=== PATIENT | male | born 1980 | race Caucasian/White ===

== ENCOUNTER 2016-04-20 22:58 | Emergency (ER) | payer SELFPAY ==
[~2016-04-20] VITALS: Ht 180.3 cm; Wt 80.0 kg
[2016-04-20 23:02] VITALS: BP 131/76; PULSE 86; RESP 16; TEMP 97.7; O2SAT 96
[2016-04-20] MEDS ORDERED: KETOROLAC TROMETHAMINE 60 MG/2 ML (IM) VIAL IM ONE (23:45)
[2016-04-20] MEDS ORDERED: traMADol HCL 50 MG TAB PO ONE (23:45)
--- NOTE | 2016-04-20 23:45 | PD ---
HPI Chief Complaint: Musculoskeletal Complaint Time Seen by Provider: 23:35 Travel History International Travel<30 days: No Contact w/Intl Traveler<30days: No Traveled to known affect area: No History of Present Illness HPI This is a 36-year-old male who presents for evaluation of right shoulder pain. He reports that 1 year ago he injured his right shoulder in a slip and fall. He reports that he had an MRI in [place] and was diagnosed with a rotator cuff tear. He saw an orthopedist who recommended surgery however he did not follow- up and then moved to the [facility]. Since moving here he has not followed up with an orthopedist. 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 He describes it as an aching pain in the right lateral and posterior shoulder joint that is worse with movement. He has tried using [id number] NSAIDs but symptoms persist which prompted evaluation. He denies any trauma to the right shoulder. He has no other complaints at this time. [facility] Past Medical History Cardiovascular Problems: Yes (HTN-DIET) Respiratory: Yes (ASTHMA) Immunizations Current: Yes Tetanus Vaccination: Unknown Influenza Vaccination: No Social History Alcohol Use: Yes (socially) Tobacco Use: No Substance Use: No Allergies-Medications (Allergen,Severity, Reaction): Coded Allergies: No Known Allergies (Unverified , 04/20/16) Review of Systems Except as stated in HPI: all other systems reviewed are Neg Physical Exam Narrative GENERAL: This is a well-developed well-nourished male in no acute distress SKIN: Warm and dry. No erythema, no puncture wounds, no bruising or soft tissue swelling, no rash CARDIOVASCULAR: Regular rate and rhythm. No murmur appreciated. RESPIRATORY: No accessory muscle use. Clear to auscultation. Breath sounds equal bilaterally. MUSCULOSKELETAL: No obvious deformities. There is some tenderness to palpation to the lateral and posterior right glenohumeral joint. The patient is able to perform all range of motion activities utilizing the right shoulder however he has pain and difficulty with right shoulder abduction and external rotation. He has a negative empty can test. 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 2+ radial pulses bilaterally, capillary refill less than 2 seconds all digits right hand. Data Data Last Documented VS Vital Signs Date Time Temp Pulse Resp B/P Pulse Ox O2 Delivery O2 Flow Rate FiO2 04/20/16 23:08 18 04/20/16 23:02 97.7 86 131/76 96 Room Air Orders Ketorolac Inj (Toradol Inj) (04/20/16 23:45) Tramadol (Ultram) (04/20/16 23:45) Support Splint (04/20/16 23:42) MDM Medical Decision Making Medical Screen Exam Complete: Yes Emergency Medical Condition: Yes Medical Record Reviewed: Yes Differential Diagnosis Right rotator cuff tear, strain, impingement, acromioclavicular separation, proximal humeral fracture Narrative Course This is a 36-year-old male who reports a known history of right rotator cuff tear diagnosed one year ago who presents with worsening right shoulder pain secondary to construction work. He reports that he has been using a jackhammer , swinging a hammer at work and these repetitive motions or exacerbating his right shoulder pain. On examination he has pain primarily with abduction, external rotation of the right shoulder. There is no limitation to movement. His history and examination is certainly consistent with rotator cuff pathology , nothing by history or examination that suggest a fracture or dislocation. Plan is to treat him symptomatically with NSAIDs, shoulder sling for short-term use and have him follow up with a primary care physician or orthopedist as an outpatient to discuss surgical options. Diagnosis Primary Impression: Right shoulder pain Qualified Code: M25.511 - Acute pain of right shoulder Departure Forms: Tests/Procedures, Work Release Enter return to work date: Apr 22, 2016 Additional Instructions: As discussed, sling for short-term 2 to three-day use. Use the medication as needed. Do not drive or drink alcohol when taking baclofen. Do not take Advil/ Aleve/naproxen/ibuprofen when taking diclofenac. Follow-up with primary care physician or orthopedist. Return for any emergent medical conditions. Med/Other Pt SpecificInfo: Prescription(s) given Scripts Baclofen 10 Mg Tab10 Mg PO Q8HR PRN (MUSCLE SPASM) 7 Days Ref 0 Prov:Rocio Garcia MD 04/21/16 Capsaicin Topical 0.075% Cream1 Applic TOPICAL BID #1 TUBE Ref 0 Prov:Rocio Garcia MD 04/21/[address] 75 Mg Tabdr75 Mg PO BID 7 Days Ref 0 Prov:Rocio Garcia MD 04/21/16 Disposition: 01 DISCHARGE HOME Condition: Stable Christiano Dias Apr 20, 2016 23:45
[2016-04-21] MEDS ORDERED: BACL10TA PO
[2016-04-21] MEDS ORDERED: CAPS0.072 TOPICAL
[2016-04-21] MEDS ORDERED: DICL75TA PO
== END 2016-04-21 00:14 | disposition home or self-care (01) ==
LOC: NEPB 22:58
DX: M25.511 Pain in right shoulder (principal); I10 Essential (primary) hypertension; J45.909 Unspecified asthma, uncomplicated; M75.101 Unspecified rotator cuff tear or rupture of right shoulder, not specified as traumatic; X50.3XXA Overexertion from repetitive movements, initial encounter; Y93.H3 Activity, building and construction; Y99.0 Civilian activity done for income or pay
CPT/HCPCS: 96372; 99283; J1885